=== PATIENT | male | born 1950 | race Caucasian/White ===

== ENCOUNTER → 2022-09-23 08:41 | Outpatient (CLI) | payer MEDICARE, OTHER, SELFPAY ==
[2022-09-23 22:08] LABS: Hep C Virus Ab w/Reflex Quant NEGATIVE s/c (NEGATIVE)
[2022-09-23 23:11] LABS: Cholesterol 254 mg/dL (140-199); Glucose 98 mg/dL (80-110); HDL Cholesterol 45 mg/dL (40-60); LDL Cholesterol Calculated 183 mg/dL (<100); Triglycerides 128 mg/dL (35-150)
[2022-09-23 23:42] LABS: Prostate Specific Antigen Scrn 0.909 ng/mL (0.1-4.0)
== END ==
PROVIDERS: PCP Physician Assistant Medical; Visit Provider Family Medicine
DX: Z00.00 Encounter for general adult medical examination without abnormal findings (principal); Z13.1 Encounter for screening for diabetes mellitus; I10 Essential (primary) hypertension; Z12.5 Encounter for screening for malignant neoplasm of prostate; Z11.59 Encounter for screening for other viral diseases; Z12.11 Encounter for screening for malignant neoplasm of colon; Z13.220 Encounter for screening for lipoid disorders
CPT/HCPCS: 80061; 82947; 86803; G0103